=== PATIENT | female | born 1990 | race Two or more races ===

== ENCOUNTER → 2016-11-19 | Outpatient (CLI) | payer MEDICAID ==
--- NOTE | 2016-11-19 17:36 | DX ---
Knee 3 Views Right History: Knee pain Comparison exam: None available. Findings: Normal alignment. Joint spaces are maintained. No fracture or joint effusion. Impression: Negative right knee radiographs.
--- NOTE | 2016-11-19 17:37 | DX ---
Right elbow, 3 views. History: Elbow pain. Findings: Normal alignment. Joint spaces are maintained. No fracture or joint effusion. Impression: Negative right elbow radiographs.
== END ==
LOC: BRMIMAGING 14:35
PROVIDERS: ATTEND Physician Assistant
DX: M25.521 Pain in right elbow (principal); M25.561 Pain in right knee
CPT/HCPCS: 73080-PO; 73562-PO